=== PATIENT | male | born 1985 | race American Indian/Alaskan Native ===

== ENCOUNTER 2020-03-17 17:15 | Emergency (ER) | payer SELFPAY ==
--- NOTE | 2020-03-17 18:13 | Emergency Department Report ---
ED Psych HPI - General Chief Complaint: Psych Stated Complaint: AMS/BI POLAR Time Seen by Provider: 03/17/20 18:08 Source: patient, EMS Mode of arrival: Ambulatory - History of Present Illness Initial Comments: Patient is 35 years old male with history of schizophrenia. Patient brought to the emergency room via EMS for altered mental status. Patient is very paranoid with significant racing thoughts. Patient stated that somebody implanted something in his abdomen and to track him. He stated that if you turn the radio to a certain channel he was listening to the conversation. I asked him what conversation he said they talk about me and saying that they are coming to get me to kill me because pedophile. Patient is very agitated and looking around. Patient denies suicidal or homicidal ideation. MD Complaint: altered mental status -: days(s) Associated Psychiatric Symptoms: racing thoughts History of same: Yes Quality: constant Context: not taking psychiatric Associated Symptoms: denies other symptoms - Related Data Allergies Allergy/AdvReac Type Severity Reaction Status Date / Time No Known Allergies Allergy Unverified 03/17/20 17:55 ED Review of Systems ROS: Stated complaint: AMS/BI POLAR Other details as noted in HPI Comment: All other systems reviewed and negative Constitutional: denies: chills, fever Respiratory: denies: cough, shortness of breath, SOB with exertion Cardiovascular: denies: chest pain Gastrointestinal: denies: abdominal pain, nausea, vomiting Musculoskeletal: denies: back pain Psychiatric: anxiety ED Past Medical Hx - Past Medical History Previous Medical History?: Yes Hx Psychiatric Treatment: Yes (schziophrenia) - Surgical History Past Surgical History?: No - Social History Smoking Status: Never Smoker Substance Use Type: Marijuana ED Physical Exam - General Limitations: No Limitations General appearance: alert, in no apparent distress, anxious - Head Head exam: Present: atraumatic, normocephalic, normal inspection - Eye Eye exam: Present: normal appearance - ENT ENT exam: Present: normal exam, normal orophraynx, mucous membranes moist - Neck Neck exam: Present: normal inspection, full ROM. Absent: tenderness, meningismus, lymphadenopathy, thyromegaly - Respiratory Respiratory exam: Present: normal lung sounds bilaterally - Cardiovascular Cardiovascular Exam: Present: tachycardia - GI/Abdominal GI/Abdominal exam: Present: soft, normal bowel sounds. Absent: distended, tenderness, guarding, rebound, rigid, organomegaly, mass, bruit, pulsatile mass, hernia - Extremities Exam Extremities exam: Present: normal inspection, full ROM, normal capillary refill - Back Exam Back exam: Present: normal inspection, full ROM. Absent: CVA tenderness (R), CVA tenderness (L) - Neurological Exam Neurological exam: Present: alert, oriented X3, CN II-XII intact, normal gait, reflexes normal. Absent: motor sensory deficit - Psychiatric Psychiatric exam: Present: agitated, anxious. Absent: homicidal ideation, suicidal ideation - Skin Skin exam: Present: warm, intact, normal color ED Course Vital Signs 03/17/20 03/17/20 03/18/20 18:03 19:30 04:33 Temperature 98.7 F 98.2 F 98.1 F Pulse Rate 131 H 108 H Respiratory 16 18 18 Rate Blood Pressure 139/93 172/117 Blood Pressure 150/99 [Right] O2 Sat by Pulse 99 98 Oximetry 03/18/20 03/18/20 03/18/20 04:49 04:59 06:02 Temperature Pulse Rate 100 H 100 H 113 H Respiratory 18 18 Rate Blood Pressure 162/111 162/111 147/112 Blood Pressure [Right] O2 Sat by Pulse 100 100 Oximetry 03/18/20 03/18/20 03/19/20 08:01 20:15 01:32 Temperature 98.0 F 98.3 F 97.8 F Pulse Rate 90 94 H 71 Respiratory 20 18 18 Rate Blood Pressure 136/95 110/65 Blood Pressure 149/105 [Right] O2 Sat by Pulse 100 100 99 Oximetry 03/19/20 03/19/20 03/20/20 07:51 20:27 02:45 Temperature 97.9 F 97.8 F 98.2 F Pulse Rate 100 H 91 H 85 Respiratory 16 18 18 Rate Blood Pressure 138/86 Blood Pressure 121/81 101/59 [Right] O2 Sat by Pulse 100 98 100 Oximetry ED Medical Decision Making - Lab Data Result diagrams: 03/17/20 19:24 03/19/20 16:33 Critical care attestation.: If time is entered above; I have spent that time in minutes in the direct care of this critically ill patient, excluding procedure time. ED Disposition Clinical Impression: Acute psychosis Disposition: DC-01 TO HOME OR SELFCARE Is pt being admited?: No Condition: Stable Additional Instructions: Outpatient COMMUNITY Behavioral Health Resources: [facility] ([facility]) [address] [place] [address] / [phone] Sunday thru Sunday - 8am - 5pm [facility] Address: [address] [place] [address] Sunday thru Sunday- 7am-2pm [facility] Address: [address] [place] [address] Sunday thru Sunday: 8:30AM-5PM CRISIS RESOURCES [place] Crisis Line: Suicide Prevention Line: Crisis Text Line: Text START to [phone] Emergency: 911 Referrals: PRIMARY CARE, [Primary Care Provider] - 3-5 Days
[2020-03-17 18:34] LABS: Amphetamine Screen,Urine PRESUMPTIVE POSITIVE; Benzodiazepines Screen,Urine PRESUMPTIVE NEGATIVE; Cannabinoid Screen,Urine PRESUMPTIVE POSITIVE; Cocaine Screen,Urine PRESUMPTIVE NEGATIVE; Methadone Screen,Urine PRESUMPTIVE NEGATIVE; Opiate Screen,Urine PRESUMPTIVE NEGATIVE
[2020-03-17 18:40] LABS: Bacteria,Urine 4+ /HPF (Negative); Bilirubin,Urine NEG (Negative); Blood,Urine MOD (Negative); Color,Urine Yellow (Yellow); Mucus,Urine 3+ /HPF
[2020-03-17] MEDS ORDERED: ZIPRASIDONE MESYLATE 20 MG VIAL IM ONE (18:42)
[2020-03-17] MEDS ORDERED: WATER FOR INJ Sterile (PF) 10 ML ONE (18:45)
[2020-03-17 19:37] LABS: Basophils # (Auto) 0.1 K/mm3 (0.0-0.1); Basophils % (Auto) 0.7 % (0.0-1.8); Eosinophils % (Auto) 0.3 % (0.0-4.3); Hemoglobin 14.4 gm/dl (11.8-15.2); Lymphocytes % (Auto) 25.9 % (13.4-35.0); Mean Corpuscular HGB Conc 33 % (32-34); Mean Corpuscular Volume 98 fl (84-94); Monocytes # (Auto) 0.7 K/mm3 (0.0-0.8); Monocytes % (Auto) 8.3 % (0.0-7.3); Platelet Count 287 K/mm3 (140-440); Red Blood Count 4.51 M/mm3 (3.65-5.03); Red Cell Distribution Width 15.8 % (13.2-15.2)
[2020-03-17 19:57] LABS: BUN/Creatinine Ratio 14; Blood Urea Nitrogen 18 mg/dL (9-20); Hemolysis Index 15
[2020-03-17] MEDS ORDERED: MELATONIN 5 MG TAB PO ONE ×2 (23:54→23:59)
[2020-03-18] MEDS ORDERED: cloNIDine 0.1 MG TAB PO ONE (04:53)
[2020-03-18] MEDS ORDERED: HALOPERIDOL LACTATE 5 MG/1 ML INJ IM PRN (09:13)
[2020-03-18] MEDS ORDERED: LORazepam 2 MG/ML VIAL IM PRN (09:13)
[2020-03-18] MEDS ORDERED: POTASSIUM CHLORIDE ER 20 MEQ TAB PO SCH (10:00)
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
[2020-03-18 15:35] LABS: BUN/Creatinine Ratio 13; Blood Urea Nitrogen 15 mg/dL (9-20); Calcium 9.5 mg/dL (8.4-10.2); Hemolysis Index 17
[2020-03-18] MEDS: ZIPRASIDONE MESYLATE 20 MG VIAL IM SCH ×2 (16:32→21:35)
[2020-03-18] MEDS: SULFAMETHOXAZOLE/TRIMETHOPRIM 800/160MG DS TAB PO SCH ×2 (16:32→21:35)
[2020-03-18] MEDS: POTASSIUM CHLORIDE 20 MEQ PACKET PO SCH (20:14)
--- NOTE | 2020-03-19 11:56 | Progress Note ---
Subjective - Reason for Consult Consult date: 03/19/20 Reason for consult: MHE Requesting physician: FIONA RIGGS - Chief Complaint Chief complaint: Psych Progress Patient seen this AM, reports feeling bbetter, say he is just chilling, denies being angry, no more attmepts made to run away and medication complaint. 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 Says he does not get along well with is mother hence why she is commiting him to inpatient. MENTAL STATUS EXAMINATION General Appearance and Behavior: Age appropriate, poor hygiene, wearing appropriate clothes, poor eye contact, cooperative but irritable with quest ioning. Cooperation: Hostile and Guarded Psychomotor Behavior: Psychomotor normal Mood: good Affect and affective range: Angry, constricted, decreased range, Thought Process:Illogical, Thought Content: f Speech: Normal volume, Regular rate and rhythm Intellectual Functioning: Average Suicidal Ideation: Denies SI Homicidal Ideation: Denies HI Impulse Control: Impaired Insight and Judgment: Impaired Memory: Normal, Attention: Divided attention impaired Orientation: Alert, oriented, Assessment and Plan - Psychiatric problem (1) Psychoactive substance-induced mood disorder Current Visit: Yes Status: Acute (2) Schizoaffective disorder Current Visit: Yes Status: Acute Treatment Plan MEDICATIONS: continue current medications Risks, benefits and alternatives of medications discussed with the patient, questions answered and consent obtained from patient. PSYCHOTHERAPY: Supportive psychotherapy provided MEDICAL: Per primary team DELIRIUM PRECAUTIONS: Please re-orient patient frequently, keep lights on during the day, and minimize benzodiazepines and opiates as these medications could worsen patient's confusion. 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 Please contact with any questions and/or concerns. Mental Status Exam - Vital signs Last Vital Signs Temp 97.9 F 03/19/20 07:51 Pulse 100 H 03/19/20 07:51 Resp 16 03/19/20 07:51 BP 138/86 03/19/20 07:51 Pulse Ox 100 03/19/20 07:51 Assessment and Plan - Patient Problems (1) Psychoactive substance-induced mood disorder Current Visit: Yes Status: Acute (2) Schizoaffective disorder Current Visit: Yes Status: Acute
[2020-03-19] MEDS: ZIPRASIDONE MESYLATE 20 MG VIAL IM SCH (12:28)
[2020-03-19] MEDS: POTASSIUM CHLORIDE 20 MEQ PACKET PO SCH (12:28)
[2020-03-19] MEDS: SULFAMETHOXAZOLE/TRIMETHOPRIM 800/160MG DS TAB PO SCH ×2 (12:29→22:14)
[2020-03-19 17:07] LABS: Alanine Aminotransferase 20 units/L (7-56); Albumin 4.4 g/dL (3.9-5); BUN/Creatinine Ratio 15; Blood Urea Nitrogen 18 mg/dL (9-20); Calcium 9.5 mg/dL (8.4-10.2); Hemolysis Index 9
[2020-03-19] MEDS ORDERED: diphenhydrAMINE 25 MG CAP PO ONE (20:21)
[2020-03-20 02:47] VITALS: BP 101/59
[2020-03-20] MEDS: SULFAMETHOXAZOLE/TRIMETHOPRIM 800/160MG DS TAB PO SCH (10:19)
[2020-03-20] MEDS: POTASSIUM CHLORIDE 20 MEQ PACKET PO SCH (10:19)
--- NOTE | 2020-03-20 13:02 | Progress Note ---
Subjective - Reason for Consult Consult date: 03/20/20 Reason for consult: MHE Requesting physician: FIONA RIGGS - Chief Complaint Chief complaint: Psych Progress Patient seen this AM, reports feeling better, says he was crying this AM when mother called in and was arguing with staff snd says that has been ssues with her, she never listens or supportive of their needs. Patients he understands he has to take his mental health isssues and doing the ecstacy pills was wrong MENTAL STATUS EXAMINATION General Appearance and Behavior: Age appropriate, poor hygiene, wearing appropriate clothes, poor eye contact, cooperative polite with questioning. Cooperation: Hostile and Guarded Psychomotor Behavior: Psychomotor normal Mood: good Affect and affective range: congurent with mood Thought Process:logical, Thought Content: within reality Speech: Normal volume, Regular rate and rhythm Intellectual Functioning: Average Suicidal Ideation: Denies SI Homicidal Ideation: Denies HI Impulse Control: unimpaired Insight and Judgment: unmpaired Memory: Normal, Attention: sustained Orientation: Alert, oriented, Assessment and Plan - Psychiatric problem (1) Psychoactive substance-induced mood disorder Current Visit: Yes Status: Acute (2) Schizoaffective disorder Current Visit: Yes Status: Acute Treatment Plan MEDICATIONS: continue current medications Risks, benefits and alternatives of medications discussed with the patient, questions answered and consent obtained from patient. PSYCHOTHERAPY: Supportive psychotherapy provided MEDICAL: Per primary team DELIRIUM PRECAUTIONS: Please re-orient patient frequently, keep lights on during the day, and minimize benzodiazepines and opiates as these medications could worsen patient's confusion. 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 Please contact with any questions and/or concerns. Mental Status Exam - Vital signs Last Vital Signs Temp 98.2 F 03/20/20 02:45 Pulse 85 03/20/20 02:45 Resp 18 03/20/20 02:45 BP 101/59 03/20/20 02:45 Pulse Ox 100 03/20/20 02:45 Assessment and Plan - Patient Problems (1) Psychoactive substance-induced mood disorder Current Visit: Yes Status: Acute (2) Schizoaffective disorder Current Visit: Yes Status: Acute
== END 2020-03-20 13:55 | disposition home or self-care (01) ==
LOC: ED 17:15
DX: F23 Brief psychotic disorder (principal); F12.90 Cannabis use, unspecified, uncomplicated; F25.0 Schizoaffective disorder, bipolar type
CPT/HCPCS: 36415; 80048; 80307; 81001; 82550; 83735; 85025; 87086; 96372; 99285; J1630; J2060; J3486; 80053; 80320; G0480